=== PATIENT | male | born 1975 | race Caucasian/White ===

== ENCOUNTER 2019-10-15 08:59 | Emergency (ER) | payer SELFPAY ==
[~2019-10-15] VITALS: Ht 170.2 cm; Wt 74.8 kg
[2019-10-15 08:59] VITALS: BP_SYST 133
[2019-10-15 09:20] VITALS: BP_SYST 133
== END 2019-10-15 09:20 | disposition home or self-care (01) ==
LOC: SED 08:59
DX: Z02.89 Encounter for other administrative examinations (principal)
CPT/HCPCS: 99283